=== PATIENT | male | born 1980 | race Caucasian/White ===

== ENCOUNTER 2020-09-05 18:58 | Emergency (ER) | payer OTHER ==
[~2020-09-05] VITALS: Ht 172.7 cm; Wt 68.0 kg
[2020-09-05 19:25] VITALS: BP 134/93
--- NOTE | 2020-09-05 19:28 | NUR ---
TO LOBBY A/W BED AMBULATORY
[2020-09-05] MEDS ORDERED: LIDOCAINE MPF 1% 10 MG/ML VIAL INJ ONE (20:15)
[2020-09-05] MEDS ORDERED: BACITRACIN OINT 500 UNITS/GM PKT TP ONE (20:15)
--- NOTE | 2020-09-05 21:00 | NUR ---
SEE COMPLETE ASSESSEMNT
== END 2020-09-05 21:06 | disposition home or self-care (01) ==
LOC: MED 18:58
DX: S91.312A Laceration without foreign body, left foot, initial encounter (principal); W25.XXXA Contact with sharp glass, initial encounter; Y93.89 Activity, other specified; Y92.89 Other specified places as the place of occurrence of the external cause; Y99.8 Other external cause status
CPT/HCPCS: 12002; 99283; J2001